=== PATIENT | female | born 2005 | race African-American/Black ===

== ENCOUNTER 2025-04-19 19:30 | Emergency (ER) | payer OTHER, SELFPAY ==
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
[2025-04-19 19:33] VITALS: BP 117/81; PULSE 105; RESP 17; TEMP 36.6; O2SAT 100
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
[2025-04-19] MEDS: ACETAMINOPHEN 500 MG TABLET 1000 MG PO (21:03)
[2025-04-19] MEDS: IBUPROFEN 400 MG TABLET 800 MG PO (21:04)
--- OUTSIDE RECORDS SUMMARY | 2025-04-19 22:48 | XMS_ITS | Clinical Summary ---
Author Organization [facility] Address [address] [place] [address] Care Team Providers Care Building Supplies Salesperson Retail Name Role Phone Yoni Roman MD Primary Care Provider [phone] Source Comments [facility],non-owned Affiliates and Associated Physician Practices is amultiple site organization consisting of ambulatory clinics and hospital sitesin [place], [place], [place] and [place]. This disclosure is being madepursuant to the Care Everywhere program and may not contain all information available regarding this patient. Last updated 18.[facility] Allergies No known active allergies Medications * Be aware that medications may not be up to date on this document. Alwaysverify current medications with the patient. bismuth subsalicylate (PEPTO-BISMOL;KAOP ECTATE) 262 MG/15ML suspension Take 262 mg by mouth every 1 hour as needed Active ondansetron (ZOFRAN) 4 MG tablet Take 1 tablet by mouth every 6 hours as needed for Nausea/Vomi ting 2 tablet 8 Active Social History Tobacco Use Types Packs/Day Years Used Date Smoking Tobacco: Never Smokeless Tobacco: Never Comments No Sex and Gender Information Value Date Recorded Sex Assigned at Not on file Legal Sex Female 6:55 AM [employer]IVE [employer] Gender Identity Not on file Sexual Orientation Not on file Last Filed Vital Signs Vital Sign Reading Time Taken Comments Blood Pressure 130/66 10/08/2017 6:17 PM EXECUTIVE COACH Pulse 100 10/08/2017 8:31 PM EXECUTIVE COACH Temperature 36.9 C (98.5 F) 10/08/2017 8:31 PM EXECUTIVE COACH Respiratory Rate 20 10/08/2017 8:31 PM EXECUTIVE COACH Oxygen Saturation - - Inhaled Oxygen Concentration - - Weight 72.3 kg (159 lb 6.3 oz) 10/08/2017 6:17 P M [employer]EC[employer]IVE COACH Height - - Body Mass Index - - Plan of Treatment Health Maintenance Due Date Last Done Comments HIV SCREENING 2020 HPV VACCINE (1 - 3-dose series) 2020 CHLAMYDIA/GONORRHEA SCREENING 2021 MENINGOCOCCAL (Group B) VACC INE SHARED DECISION-MAKING (1 of 2 - Standard) 2021 HEPATITIS C SCREENING 07/13/2023 COVID-19 VACCINE (1 - 2023-2 5 season) 2024 DTAP/TDAP/TD VACCINES (1 - Tdap) 2024 HEPATITIS B VACCINE (1 of 3 - 19+ 3-dose series) 2024 DEPRESSION SCREENING 09/07/2024 INFLUENZA VACCINE (#1) 2025 ZOSTER VACCINE (1 of 2) 2055 HIB VACCINE Aged Out No longer eligi ble based on patient's age to complete this topic MENINGOCOCCAL GROUPS A/C/Y/W VACCINE Aged Out No longer eligible b ased on patient's age to complete this topic PNEUMOCOCCAL VACCINE Aged Out No long er eligible based on patient's age to complete this topic Insurance [employer] [place] [place] [address] Care Teams Building Supplies Salesperson Retail Relationship Specialty Start Date End Date Yoni Roman MD [address] [address] PCP - General 01/06/22
[2025-04-19 22:57] VITALS: BP 120/77; PULSE 93; RESP 19; TEMP 36.5; O2SAT 99
[2025-04-19 22:58] VITALS: BP 120/77; PULSE 93; RESP 19; TEMP 36.5; O2SAT 99
== END 2025-04-19 23:00 | disposition home or self-care (01) ==
LOC: ANHED 22:47
PROVIDERS: Emergency Provider Student in an Organized Health Care Education/Training Program
DX: M25.512 Pain in left shoulder (principal); V43.62XA Car passenger injured in collision with other type car in traffic accident, initial encounter
CPT/HCPCS: 73030; 99283; A9270